=== PATIENT | female | born 1980 | race Caucasian/White ===

== ENCOUNTER 2017-01-19 21:03 | Emergency (ER) | payer BC ==
[2017-01-19 22:00] LABS: ABSOLUTE BASOPHILS # (AUTO) 0.1 10^3/uL (0.0-0.2); ABSOLUTE EOSINOPHILS # (AUTO) 0.2 10^3/uL (0.0-0.6); ABSOLUTE LYMPHOCYTES (AUTO) 6.9 10^3/uL (0.5-4.7); ABSOLUTE MONOCYTES (AUTO) 0.7 10^3/uL (0.1-1.4); ABSOLUTE NEUT (AUTO) 11.3 10^3/uL (1.7-8.2); BASOPHILS % (AUTO) 0.3 % (0-2); EOSINOPHILS % (AUTO) 1.2 % (0-6); HEMATOCRIT 40.2 % (36.0-47.0); HEMOGLOBIN 12.7 g/dL (12.0-15.5); HGB HCT DIFFERENCE -2.1; MEAN CORPUSCULAR HEMOGLOBIN 28.4 pg (27.0-33.4); MEAN CORPUSCULAR HGB CONC 31.5 g/dL (32.0-36.0); MEAN CORPUSCULAR VOLUME 90 fl (80-97); MONOCYTES % (AUTO) 3.5 % (3-13); RED BLOOD COUNT 4.46 10^6/uL (3.72-5.28); RED CELL DISTRIBUTION WIDTH 13.6 % (11.5-14.0); WHITE BLOOD COUNT 19.1 10^3/uL (4.0-10.5)
--- NOTE | 2017-01-19 22:10 | RADIOLOGY REPORT (SQ) ---
EXAM DESCRIPTION: CHEST SINGLE VIEW COMPLETED DATE/TIME: 01/19/2017 9:47 pm REASON FOR STUDY: dyspnea, allergic reaction COMPARISON: None. EXAM PARAMETERS: NUMBER OF VIEWS: One view. TECHNIQUE: Single frontal radiographic view of the chest acquired. RADIATION DOSE: NA LIMITATIONS: None. FINDINGS: LUNGS AND PLEURA: No opacities, masses or pneumothorax. No pleural effusion. MEDIASTINUM AND HILAR STRUCTURES: No masses. Contour normal. HEART AND VASCULAR STRUCTURES: Heart normal in size. Normal vasculature. BONES: No acute findings. HARDWARE: EKG leads overlie the chest. OTHER: No other significant finding. IMPRESSION: NO ACUTE RADIOGRAPHIC FINDING IN THE CHEST. TECHNICAL DOCUMENTATION: JOB ID: [id number]
[2017-01-19 22:15] LABS: ALANINE AMINOTRANSFERASE 27 U/L (9-52); ALBUMIN 4.2 g/dL (3.5-5.0); ALKALINE PHOSPHATASE 99 U/L (38-126); ANION GAP 18 (5-19); ASPARTATE AMINO TRANSFERASE 23 U/L (14-36); BILIRUBIN,DIRECT 0.5 mg/dL (0.0-0.4); BILIRUBIN,TOTAL 0.5 mg/dL (0.2-1.3); BLOOD UREA NITROGEN 12 mg/dL (7-20); CALCIUM 8.9 mg/dL (8.4-10.2); CARBON DIOXIDE 18 mmol/L (22-30); CHLORIDE 105 mmol/L (98-107); CREATININE RESULT 0.94 mg/dL (0.52-1.25); GLUCOSE 288 mg/dL (75-110); SODIUM 140.7 mmol/L (137-145); TOTAL PROTEIN 7.3 g/dL (6.3-8.2)
[2017-01-19 22:23] LABS: POTASSIUM 2.9 mmol/L (3.6-5.0)
[2017-01-19] MEDS ORDERED: ONDANSETRON HCL INJ/PF 4 MG/2 ML SDV IV ONE (22:33)
[2017-01-19] MEDS ORDERED: LORAZEPAM INJ 2 MG/1 ML VIAL IV ONE (22:34)
[2017-01-19] MEDS ORDERED: POTASSI CL 40 MEQ/NS 1L 1,000 ML IV ONE (22:35)
[2017-01-19 22:45] LABS: THYROID STIMULATING HORMONE 3.64 uIU/mL (0.47-4.68)
--- NOTE | 2017-01-19 23:05 | ER Document Report ---
ED General - General Chief Complaint: Allergic Reaction Stated Complaint: POSSIBLE ALLERGIC REACTION Time Seen by Provider: 01/19/17 21:13 Mode of Arrival: Medic Information source: Patient - HPI Notes: Patient is a 36-year-old female history of previous allergic reaction to watermelon states that she ate watermelon prior to arrival and about 10 minutes thereafter noted she was having difficulty breathing with a rash and felt throat irritation like her throat was closing and had wheezing. The patient took 2 of her EpiPen's at home prior to arrival of EMS. EMS administered an additional 2 doses of 0.3 mg IM epinephrine as well as 125 mg of IV Solu-Medrol and 50 mg of Benadryl and 4 of Zofran. There is question of a low oxygen saturation briefly, and the patient was given a DuoNeb. She arrives with appropriate oxygen saturations but states she feels nervous and jittery and still feels like her throat is closing although she is talking normally. She states her rash is resolved. She reports a mild chest tightness. There is no prior history of cardiac disease. No significant medication changes. No abdominal pain. The patient did have some nausea previously. No vomiting. - Related Data Allergies/Adverse Reactions: codeine Allergy (Verified 01/19/17 21:45) latex Allergy (Verified 01/19/17 21:45) metformin Allergy (Verified 01/19/17 21:45) oxycodone Allergy (Verified 01/19/17 21:45) watermelon Allergy (Verified 01/19/17 21:45) Past Medical History - General Information source: Patient - Social History Smoking Status: Never Smoker Chew tobacco use (# tins/day): No Frequency of alcohol use: None Drug Abuse: None Lives with: Family Family History: Reviewed & Not Pertinent - Past Medical History Cardiac Medical History: Reports: Hx Hypercholesterolemia, Hx Hypertension Pulmonary Medical History: Reports: Hx Asthma Endocrine Medical History: Reports: Hx Diabetes Mellitus Type 2 - Immunizations Hx Diphtheria, Pertussis, Tetanus Vaccination: No Review of Systems - Review of Systems Notes: REVIEW OF SYSTEMS: CONSTITUTIONAL : Denies fever, chills, or sweats. Denies recent illness. EENT: Denies eye, ear, throat, or mouth pain or symptoms. Denies nasal or sinus congestion or discharge. CARDIOVASCULAR: Denies ankle edema. Mild tachycardia. RESPIRATORY: Denies cough, cold, or chest congestion. Denies shortness of breath, difficulty breathing, or wheezing. GASTROINTESTINAL: Denies abdominal pain or distention. Denies nausea, vomiting , or diarrhea. Denies blood in vomitus, stools, or per rectum. Denies black, tarry stools. Denies constipation. GENITOURINARY: Denies difficulty urinating, painful urination, burning, frequency, blood in urine, or discharge. FEMALE GENITOURINARY: Denies vaginal bleeding, heavy or abnormal periods, irregular periods. Denies vaginal discharge or odor. MUSCULOSKELETAL: Denies back or neck pain or stiffness. Denies joint pain or swelling. SKIN: Denies lesions or sores. Patient reports her rash is currently improved. HEMATOLOGIC : Denies easy bruising or bleeding. LYMPHATIC: Denies swollen, enlarged glands. NEUROLOGICAL: Denies confusion or altered mental status. Denies passing out or loss of consciousness. Denies dizziness or lightheadedness. Denies headache. Denies weakness or paralysis or loss of use of either side. Denies problems with gait or speech. Denies sensory loss, numbness, or tingling. Denies seizures. PSYCHIATRIC: Denies depression, suicidal ideation, or homicidal ideation. Patient states she feels anxious after the 4 rounds of subcutaneous epinephrine she received. ALL OTHER SYSTEMS REVIEWED AND NEGATIVE. Dictation was performed using [employer] voice recognition software Physical Exam - Vital signs Vitals: Resp Pulse Ox 31 H 97 01/19/17 21:08 01/19/17 21:08 - Notes Notes: PHYSICAL EXAMINATION: GENERAL: Extremely anxious somewhat diaphoretic. The HEAD: Atraumatic, normocephalic. EYES: Pupils equal round and reactive to light, extraocular movements intact, conjunctiva are normal. ENT: Nares patent, oropharynx clear without exudates. Moist mucous membranes. For No OP swelling. NECK: Normal range of motion, supple without lymphadenopathy LUNGS: Breath sounds clear to auscultation bilaterally and equal. No rales or rhonchi. Scant anterior wheeze. HEART: Tachycardic rate and rhythm without murmurs ABDOMEN: Soft, nontender, nondistended abdomen. No guarding, no rebound. No masses appreciated. Female : deferred Musculoskeletal: Normal range of motion, no pitting or edema. No cyanosis. NEUROLOGICAL: Cranial nerves grossly intact. Normal speech, normal gait. Normal sensory, motor exams PSYCH: anxious.. SKIN: Warm, Dry, normal turgor, no rashes or lesions noted. Course - Re-evaluation Re-evalutation: 01/19/17 23:08 She was given patient was watched on cardiac cath lab radiology technologist. Her tachycardia seemed to improve. On repeat exam, there is no significant wheezing. No oropharyngeal swelling. Patient still reported some nausea. patient was given zofran and Ativan IV. Her mild chest tightness resolved. Potassium was low at 2.9. Patient was rehydrated with IV fluids and was given supplemental potassium. 01/19/17 23:09 On repeat exam there is no wheezing. The patient had no oropharyngeal swelling. Patient tolerated p.o. fluids and was ambulatory without complaint and felt stable for discharge. Blood pressure and vital signs were stable. Oxygen saturation was stable. No evidence for acute KS or ischemia or renal insufficiency. Patient's electrolytes were improved on repeat exam. Potassium was appropriately improved. No evidence for DKA. 01/20/17 02:45 - Vital Signs Vital signs: Temp Pulse Resp BP Pulse Ox 99.2 F 18 121/67 96 01/19/17 22:19 01/19/17 23:01 01/19/17 23:01 01/19/17 23:01 - Laboratory Result Diagrams: 01/19/17 21:45 01/20/17 01:35 Laboratory results interpreted by me: 01/19/17 01/19/17 01/20/17 21:45 21:45 01:35 WBC 19.1 H MCHC 31.5 L Absolute Neutrophils 11.3 H Absolute Lymphocytes 6.9 H Potassium 2.9 L* Chloride 109 H Carbon Dioxide 18 L 21 L Glucose 288 H 172 H Direct Bilirubin 0.5 H - EKG Interpretation by Fl EKG shows normal: Sinus rhythm Additional EKG results interpreted by me: 01/19/17 23:10 EKG as interpreted by vt showed sinus tachycardia heart rate of 102. There is no gross evidence for acute KS or ischemia identified. There was no old EKG available for comparison. Discharge - Discharge Clinical Impression: Hypokalemia, Hyperglycemia Allergic reaction Qualifiers: Encounter type: initial encounter Qualified Code(s): T78.40XA - Allergy, unspecified, initial encounter Condition: Stable Disposition: HOME, SELF-CARE Instructions: Acute Allergic Reaction ([facility]), Hypokalemia ([facility]), Epinephrine Additional Instructions: Avoid watermelon due to allergic response. Take Benadryl up to 50 mg every 4 hours as needed for allergic reaction. Take Zantac, Pepcid, or oral ranitidine as directed to control allergic response. Take steroid prednisone as long as your experiencing allergic response. Drink plenty of fluids. Return to the ED in case of difficulty breathing, severe swelling. Watch your blood sugars closely while taking steroids. Your low potassium has been replaced in the IV fluids you received. Prescriptions: Epinephrine [Epipen 2-Alireza] 0.3 mg IM ASDIR PRN #2 ml PRN Reason: Prednisone [Deltasone 10 mg Tablet] 10 mg PO ASDIR PRN #21 tablet PRN Reason:
[2017-01-20 02:06] LABS: ANION GAP 13 (5-19); BLOOD UREA NITROGEN 13 mg/dL (7-20); CARBON DIOXIDE 21 mmol/L (22-30); CHLORIDE 109 mmol/L (98-107); CREATININE RESULT 0.83 mg/dL (0.52-1.25); GLUCOSE 172 mg/dL (75-110); SODIUM 142.7 mmol/L (137-145)
[2017-01-20 02:19] LABS: POTASSIUM 4.3 mmol/L (3.6-5.0)
[2017-01-20 02:56] VITALS: BP 127/73
--- NOTE | 2017-01-20 10:22 | EKG REPORT ---
SEVERITY:- BORDERLINE ECG - SINUS TACHYCARDIA NONSPECIFIC ST-T CHANGES- INFERIOR-LATERAL LEADS : Confirmed by: Flaquito Lizama MD 20-Jan-2017 10:21:36
== END 2017-01-20 02:56 | disposition home or self-care (01) ==
LOC: ER 21:03
DX: T78.40XA Allergy, unspecified, initial encounter (principal); E87.6 Hypokalemia; E11.65 Type 2 diabetes mellitus with hyperglycemia; R06.00 Dyspnea, unspecified; R07.89 Other chest pain; E78.00 Pure hypercholesterolemia, unspecified; I10 Essential (primary) hypertension; J45.909 Unspecified asthma, uncomplicated; Z88.6 Allergy status to analgesic agent; Z91.040 Latex allergy status
CPT/HCPCS: 93005; 99284; 96361; 96374; 96375; 36415; 84439; 83735; 84443; 84703; 85025; 80048; 80053; 84484; 71010; 93010; J2060; J2405; J3480